=== PATIENT | female | born 1995 | race Caucasian/White ===

== ENCOUNTER → 2017-06-05 | Outpatient (CLI) | payer OTHER ==
--- NOTE | 2017-06-05 15:12 | MAMMOGRAPHY REPORT ---
ULTRASOUND OF BOTH BREASTS: 06/05/2017 CLINICAL HISTORY: Her provider felt lumps in her breasts at annual checkup. In particular, a left br east mass was noted in the 12:00 axis, just outside the areola, and right breast upper outer quadrant confluence of masses. Patient reports no skin erythema or thickening, no nipple discharge, no known family history of breast cancer. COMPARISON: No prior exams were available for comparison. FINDINGS: Targeted ultrasound was performed to the areas of palpable lumps pointed out by the patien t, initially identified by her provider. In the left 12:00 axis, periareolar and 1 cm from the nippl e, there is sonographically normal dense fibroglandular tissue, which is seen extending close to the dermis in the area of palpable concern. No suspicious solid or cystic mass. In the area of nodulari ty in the right 10:00 axis, approximately 8 cm from the nipple, dense fiber glandular tissue is again seen extending close to the dermis. No suspicious solid or cystic mass is identified. The palpable lumps in both breasts most likely represent dense glandular tissue coursing between fat lobules clos e to the skin surface explaining the nodularity. There is no sonographic evidence of malignancy on t argeted ultrasound in the breasts. IMPRESSION: ACR BI-RADS CATEGORY 2: BENIGN No sonographic evidence of malignancy or other suspicious abnormality to explain the palpable lumps i n the left 12:00 and right 10:00 breast in the areas of concern identified by the patient's provider. The nodularity is felt to represent dense glandular tissue coursing close to the skin surface betwe en softer fat lobules. However, clinical follow-up is recommended as biopsy of a clinically suspicio us mass should not be precluded by negative imaging. These results and recommendations were discussed with the patient at the time of the exam. Kaley Newell M.D. ay/:06/05/2017 09:53:54 Bacteriology Technician: Oneyda VELÁSQUEZ (R)), [facility] letter sent: Normal 1/2 BI-RADS Code: ACR BI-RADS Category 2: Benign
== END | disposition home or self-care (01) ==
LOC: C.MAMM 09:25
PROVIDERS: ATTEND Internal Medicine
DX: N63.10 Unspecified lump in the right breast, unspecified quadrant (principal); N63.20 Unspecified lump in the left breast, unspecified quadrant